=== PATIENT | female | born 1965 | race Caucasian/White ===

== ENCOUNTER → 2018-02-08 | Outpatient (CLI) | payer OTHER ==
[2016-05-23 13:55] VITALS: BP 117/43
[~2018-02-08] MED LIST: CIPR500T94 PO; HYDR-971 PO; METR500T PO
--- NOTE | 2018-02-09 08:17 | RAD ---
DATE: 02/08/2018 EXAM: Bilateral digital mammography with tomosynthesis HISTORY: Routine screening COMPARISON: 07/08/2016 This study was interpreted with the benefit of Computerized Aided Detection (CAD). The breast parenchyma shows scattered fibroglandular densities. Breast parenchyma level B. FINDINGS: 2-D and 3-D tomosynthesis imaging was performed in CC and MLO projections. There is an unchanged small intramammary lymph node type density projected over the axillary tail region of the right breast. No new or enlarging breast densities are seen. Minimal benign type calcification is present. No suspicious microcalcifications have developed. IMPRESSION: Stable mammograms without evidence of malignancy. BI-RADS CATEGORY: 2 BENIGN FINDING(S) RECOMMENDED FOLLOW-UP: 12M 12 MONTH FOLLOW-UP PQRS compliance statement: Patient information was entered into a reminder system with a target due date for the next mammogram. Mammography is a sensitive method for finding small breast cancers, but it does not detect them all and is not a substitute for careful clinical examination. A negative mammogram does not negate a clinically suspicious finding and should not result in delay in biopsying a clinically suspicious abnormality. "Our facility is accredited by the [employer] Mammography [employer]."
== END | disposition home or self-care (01) ==
LOC: MAMMO 08:11
PROVIDERS: ATTEND Obstetrics & Gynecology
DX: Z12.31 Encounter for screening mammogram for malignant neoplasm of breast (principal); E03.9 Hypothyroidism, unspecified; Z85.3 Personal history of malignant neoplasm of breast
CPT/HCPCS: 77063; 77067

== ENCOUNTER → 2019-07-24 | Outpatient (CLI) | payer OTHER ==
[2016-05-23 13:55] VITALS: BP 117/43
[~2019-07-24] MED LIST changes: +HYDR-3165 PO; -HYDR-971 PO
--- NOTE | 2019-07-24 16:31 | RAD ---
Three-view right foot study Clinical indications: Right foot pain for one week. FINDINGS: No acute fracture or dislocation is seen. Prominent plantar spur of the calcaneus is seen. There is degenerative dorsal spurring of the talonavicular joint and the navicular cuneiform joint and the first tarsal metatarsal joint. No periosteal reaction is seen. There is focal rarefaction of the lateral cortex of the proximal fifth metatarsal bone. IMPRESSION: Focal refraction of the lateral cortex of the proximal fifth metatarsal bone. Clinical correlation with this area is recommended. If there is a wound or ulcer in this area, then osteomyelitis is a possibility. Electronically signed by: Sumanth Negro MD (07/24/2019 4:28 PM) [id number]
== END | disposition home or self-care (01) ==
LOC: DXRAD 07:36
PROVIDERS: ATTEND Physician Assistant Medical
DX: M77.31 Calcaneal spur, right foot (principal)
CPT/HCPCS: 73630

== ENCOUNTER → 2019-10-04 | Outpatient (CLI) | payer OTHER ==
[2016-05-23 13:55] VITALS: BP 117/43
--- NOTE | 2019-10-04 11:30 | RAD ---
EXAM: AP and lateral views right foot DATE: 10/04/2019 12:00 AM INDICATION: Right foot pain, follow-up fracture COMPARISON: 07/24/2019 FINDINGS/IMPRESSION Progressively healing transverse fifth metatarsal base fracture (2.3 cm from the fifth metatarsal tubercle) demonstrates changes of progressive healing with prominent associated callus formation, stable in alignment. Calcaneal enthesopathy. Electronically signed by: Anthony Vallejo MD (10/04/2019 11:27 AM) [id number]
== END | disposition home or self-care (01) ==
LOC: DXRAD 10:14
PROVIDERS: ATTEND Physician Assistant
DX: S92.351D Displaced fracture of fifth metatarsal bone, right foot, subsequent encounter for fracture with routine healing (principal); M77.31 Calcaneal spur, right foot; X58.XXXD Exposure to other specified factors, subsequent encounter
CPT/HCPCS: 73620

== ENCOUNTER → 2019-11-20 | Outpatient (CLI) | payer OTHER ==
[2016-05-23 13:55] VITALS: BP 117/43
--- NOTE | 2019-11-20 12:16 | RAD ---
EXAM: Right foot, 3 views. HISTORY: Fracture follow-up. COMPARISON: None. FINDINGS: 3 views of the right foot are obtained. There has been no significant interval healing of a minimally displaced fracture involving the base of the fifth metatarsal. There is a small plantar spur. No acute fracture is seen. IMPRESSION: No significant interval change in a minimally displaced fracture involving the proximal fifth metatarsal. The previously demonstrated callus formation along the fracture line is unchanged. Electronically signed by: Reshma Blanchard MD (11/20/2019 12:13 PM) [id number]
== END | disposition home or self-care (01) ==
LOC: RAD 11:57
PROVIDERS: ATTEND Physician Assistant
DX: S92.351A Displaced fracture of fifth metatarsal bone, right foot, initial encounter for closed fracture (principal); X58.XXXA Exposure to other specified factors, initial encounter; Y93.89 Activity, other specified; Y92.89 Other specified places as the place of occurrence of the external cause; Y99.8 Other external cause status
CPT/HCPCS: 73630

== ENCOUNTER → 2020-01-27 | Outpatient (CLI) | payer OTHER ==
[2016-05-23 13:55] VITALS: BP 117/43
--- NOTE | 2020-01-27 17:44 | RAD ---
Exam: Right foot 3 views INDICATION: Injury several months ago TECHNIQUE: Frontal, lateral and oblique views of the right foot Comparisons: None FINDINGS: Redemonstration of fracture at the base of the fifth metatarsal. Bone mineralization is normal. No acute fractures seen. Joint spaces are well-maintained. IMPRESSION: Unchanged appearance of the transverse fracture at the base of the fifth metatarsal. Electronically signed by: Feliciano Thapa MD (01/27/2020 5:40 PM) [id number]
== END ==
LOC: DXRAD 14:43
PROVIDERS: ATTEND Physician Assistant
DX: S92.351A Displaced fracture of fifth metatarsal bone, right foot, initial encounter for closed fracture (principal); X58.XXXA Exposure to other specified factors, initial encounter; Y93.89 Activity, other specified; Y92.89 Other specified places as the place of occurrence of the external cause; Y99.8 Other external cause status
CPT/HCPCS: 73630

== ENCOUNTER → 2020-02-10 | Outpatient (CLI) | payer OTHER ==
[2016-05-23 13:55] VITALS: BP 117/43
--- NOTE | 2020-02-10 20:40 | RAD ---
EXAM: CT right foot without IV contrast INDICATION: Reason: CLOSED NONDISPLACED FRACTURE OF 5TH METATARSAL - NOT HEALING / Spl. Instructions: / History: TECHNIQUE: Helical CT without IV contrast of the right foot was performed and reviewed in multiplanar reformats in bone algorithm reconstructions. All CT scans performed at this facility utilize dose optimization techniques as appropriate to the exam, including the following: Automated exposure control and adjustment of the mA and/or KV according to patient size (this includes techniques or standardized protocols for targeted exams where dose is indication/reason for exam). IV CONTRAST: Not administered COMPARISON: Right foot x-rays of 07/24/2019 and 01/27/2020 FINDINGS: Previously reported transverse fracture through the base of the fifth metatarsal extending to the intermetatarsal joint is noted on CT to demonstrate callus formation with partial osseous bridging. There persists a lucency through the fracture line, suggesting incomplete osseous fusion. Subtle sclerosis along the fracture margin is present. No new fracture or aggressive appearing osseous lesion is seen. Soft tissues are unremarkable. IMPRESSION: Partial healing of the Douglas type fracture of the base of the fifth metatarsal without malalignment. Cannot exclude fibrous nonunion. Consider MRI in further evaluation if clinically warranted. Electronically signed by: Melissa Oviedo MD (02/10/2020 8:38 PM) [facility] [place]
== END ==
LOC: CT 07:46
PROVIDERS: ATTEND Physician Assistant
DX: S92.354G Nondisplaced fracture of fifth metatarsal bone, right foot, subsequent encounter for fracture with delayed healing (principal); X58.XXXD Exposure to other specified factors, subsequent encounter
CPT/HCPCS: 73700

== ENCOUNTER → 2020-10-21 | Outpatient (CLI) | payer OTHER ==
[2016-05-23 13:55] VITALS: BP 117/43
--- NOTE | 2020-10-21 13:38 | RAD ---
BILATERAL SCREENING MAMMOGRAM History: Routine screening. Comparison: Bilateral mammogram February 08, 2018. Technique: Routine digital mammogram views were obtained. Findings: Breast Tissue Density B : There are scattered areas of fibroglandular density. Stable intramammary lymph node right breast 9:00 C position. There are no dominant masses, suspicious microcalcifications or architectural distortion. IMPRESSION: No mammographic evidence of malignancy. Recommend routine screening. BI-RADS category 2: Benign findings. The images were reviewed with computer aided detection. Patient information is entered into the reminder system with a target due date for the next screening mammogram. Mammography is the most sensitive method for finding small breast cancers, but it does not detect the m all and is not a substitute for careful clinical examination. A negative mammogram does not negate a clinically suspicious finding and should not result in delay in biopsying a clinically suspicious a bnormality. "Our facility is accredited by the [employer] Mammography [employer]." Electronically signed by: Paco Welsh MD (10/21/2020 1:36 PM) [id number]
== END ==
LOC: MAMMO 07:46
PROVIDERS: ATTEND Obstetrics & Gynecology
DX: Z12.31 Encounter for screening mammogram for malignant neoplasm of breast (principal)
CPT/HCPCS: 77063; 77067

== ENCOUNTER → 2021-12-10 | Outpatient (CLI) | payer OTHER ==
[2016-05-23 13:55] VITALS: BP 117/43
--- NOTE | 2021-12-10 14:11 | RAD ---
BILATERAL DIGITAL SCREENING 2-D AND 3-D MAMMOGRAM INDICATION: Routine screening. COMPARISON: October 21, 2020, February 08, 2018, July 08, 2016 and July 03, 2015 Interpretation was made using CAD. FINDINGS: Breast Density: There are scattered areas of fibroglandular density. RIGHT BREAST: No suspicious masses, calcifications or areas of architectural distortion are seen. LEFT BREAST: No suspicious masses, calcifications or areas of architectural distortion are seen. IMPRESSION: 1. No imaging evidence of malignancy. ASSESSMENT: BI-RADS 1. Negative. RECOMMENDATION: Routine annual screening mammogram. The facility will notify the patient of the results via mail. Patient information was entered into a reminder system with a target due date for the next mammogram. A reminder letter will be generated by the facility. Electronically signed by: Odilia Treviño MD (12/10/2021 2:09 PM) [id number]
== END ==
LOC: MAMMO 11:52
PROVIDERS: ATTEND Family Medicine
DX: Z12.31 Encounter for screening mammogram for malignant neoplasm of breast (principal)
CPT/HCPCS: 77063; 77067